=== PATIENT | female | born 1960 | race Caucasian/White ===

== ENCOUNTER 2019-04-04 06:05 | Emergency (ER) | payer OTHER ==
[~2019-04-04] VITALS: Ht 165.1 cm; Wt 68.0 kg
[~2019-04-04 06:05] MED LIST: DIPH-121 PO; LISI10TA2 PO; METO-269 PO
[2019-04-04] MEDS ORDERED: oxyCODONE/APAP 5/325 1 TAB TABLET PO ONE (07:00)
[2019-04-04] MEDS ORDERED: OXYMETAZOLINE 0.05% NASAL SPRAY 30ML BOTTLE. NS ONE (07:00)
[2019-04-04] MEDS ORDERED: ONDANSETRON ODT 4 MG TAB.RAPDIS. PO ONE (07:15)
--- NOTE | 2019-04-04 07:17 | RAD ---
STUDY: CT head without contrast INDICATION: Headache. Sinus pain. COMPARISON: CT head 06/16/2011 TECHNIQUE: Axial CT imaging through the head without the use of intravenous contrast. Sagittal and coronal reformats were obtained. FINDINGS: No acute intracranial hemorrhage. No mass effect, midline shift or hydrocephalus. No focal area of mahmood-white matter differentiation loss. Patchy foci of bihemispheric subcortical white matter low-attenuation are nonspecific, but likely represent sequela of chronic microvascular ischemic change. Parenchymal volume loss with a frontal lobe predilection. The mastoid air cells are well aerated. The middle ears are clear. Patchy opacification of both the anterior and posterior ethmoidal air cells as well as partially visualized secretions in the right maxillary sinus. Faint sphenoid sinus mucosal thickening. IMPRESSION: 1. No acute intracranial abnormality by CT. 2. White matter findings as can be seen in the setting of chronic microvascular ischemic change. 3. Scattered opacification of the anterior and posterior ethmoidal air cells as well as a small amount of frothy secretions partially seen in the right maxillary sinus. Recommend correlation for symptoms that would suggest acute sinusitis. Electronically signed by: MIKEL VALENCIA MD (04/04/2019 7:14 AM) [facility]
[2019-04-04] MEDS ORDERED: HYDR-2759 PO (07:30)
[2019-04-04] MEDS ORDERED: DOXY100T PO (07:30)
[2019-04-04] MEDS ORDERED: METH4TAB2 PO (07:30)
--- NOTE | 2019-04-04 07:42 | PHYS DOC ---
Past Medical History Past Medical History: Hypertension Alcohol Use: Occasionally Drug Use: None Adult General Chief Complaint Chief Complaint: Congestion HPI HPI Patient is a 58 year old female history of seasonal allergies and sinusitis who presents with nasal congestion, sore throat, rhinorrhea, facial pain and swelling. Symptoms been ongoing for a week and progressively worsened during this time I patient taking antihistamines, nasal steroids, Mucinex [id number] pain medications. Patient also reports dull headache with nausea. Additional has a ointment to see her PCP later today.[] Review of Systems Review of Systems Review symptoms as per history of present illness. All other review symptoms are negative. All other systems were reviewed and found to be within normal limits, except as documented in this note. Current Medications Current Medications Current Medications Medications (Trade) Dose Ordered Sig/Erik Start Time Stop Time Status Last Admin Dose Admin Ondansetron HCl (Zofran Odt) 4 mg 1X ONCE 04/04/19 07:15 04/04/19 07:16 DC 04/04/19 07:16 4 MG Oxycodone/ Acetaminophen (Percocet 5/325) 1 tab 1X ONCE 04/04/19 07:00 04/04/19 07:01 DC 04/04/19 06:49 1 TAB Oxymetazoline HCl (Afrin) 2 spray 1X ONCE 04/04/19 07:00 04/04/19 07:01 DC 04/04/19 06:49 2 SPRAY Allergies Allergies Allergies Coded Allergies Type Severity Reaction Last Updated Verified Sulfa (Sulfonamide Antibiotics) Allergy Severe Hives 11/09/13 No Physical Exam Physical Exam Constitutional: Well developed, well nourished, no acute distress, non-toxic appearance. [] HENT: Normocephalic, maxillary and ethmoid sinus tenderness, nose, severe turbinate swelling, mid facial swellign, bilateral external ears normal, bilateral serous effusions, oropharynx moist, no oral exudates. [] Eyes: PERRLA, EOMI, conjunctiva normal. [] Neck: Normal range of motion, no tenderness, supple. [] Cardiovascular:Heart rate regular rhythm, no murmur .[] Neurologic: Alert and oriented X 3, normal motor function, normal sensory function, no focal deficits noted. [] Psychologic: Affect normal, judgement normal, mood normal. [] Current Patient Data Vital Signs Vital Signs Date Time Temp Pulse Resp B/P (MAP) Pulse Ox O2 Delivery O2 Flow Rate FiO2 04/04/19 07:09 75 24 127/75 (92) 97 Room Air 04/04/19 06:16 97.8 97.8 EKG EKG [] Radiology/Procedures Radiology/Procedures [CT head: Acute sinusitis] Course & Med Decision Making Course & Med Decision Making Pertinent Labs and Imaging studies reviewed. (See chart for details) [Refractory sinusitis. Will place on systemic steroids, antibiotics and pain medication. Patient to follow-up with PCP later today. Dragon Disclaimer Dragon Disclaimer This electronic medical record was generated, in whole or in part, using a voice recognition dictation system. Departure Departure Impression: Primary Impression: Sinusitis Disposition: HOME/RESIDENCE PRIOR TO ADM Condition: STABLE Patient Instructions: Sinusitis, [id number] Additional Instructions: Please continue current medications and take pain medication, steroids and antibiotics as directed. Follow up with your PCP this afternoon. Scripts Hydrocodone/Acetaminophen (Hydrocodone-Acetamin 5-325 mg) 1 Each Tablet 1 EACH PO Q6HRS, #14 TAB Prov: RUBEN KHAN DO 04/04/19 Methylprednisolone (MEDROL) 4 Mg Tab.ds.pk 1 PKG PO UD, #1 PKG Prov: RUBEN KHAN DO 04/04/19 Doxycycline Hyclate (DOXYCYCLINE HYCLATE) 100 Mg Tablet 1 TAB PO BID, #28 TAB Prov: RUBEN KHAN DO 04/04/19 RUBEN KHAN DO Apr 04, 2019 07:42
[2019-04-04 07:44] VITALS: BP 113/79
== END 2019-04-04 07:49 | disposition home or self-care (01) ==
LOC: ER 06:05
DX: J01.90 Acute sinusitis, unspecified (principal); J02.9 Acute pharyngitis, unspecified; R51 Headache; I10 Essential (primary) hypertension; Z88.2 Allergy status to sulfonamides
CPT/HCPCS: 70450; 99284; Q0162